=== PATIENT | female | born 1945 | race Caucasian/White ===

== ENCOUNTER 2017-03-03 11:37 | Day surgery (SDC) | payer MEDICARE, MEDICAID ==
[~2017-03-03] VITALS: Ht 165.1 cm; Wt 101.6 kg
[~2017-03-03 11:37] MED LIST: ACET-171 PO; ANST1T PO; ATEN25TA PO; ATOR20TA PO; CHOL200025 PO; CeFAZolin Inj 2 GM in IV Premix 1 EACH IV SCH; ECON15CR10 TOP; LISI10TA PO; Lactated Ringer's 1,000 ML IV ONE; OMEP20TA24 PO; PRIM50TA PO; RANI300T4 PO; TURMERIC ROOT; [UNRECOGNIZED DRUG - CODE] MC
[2017-03-03 12:15] VITALS: BP 159/51; PULSE 53; RESP 16; O2SAT 95
[2017-03-03 13:04] LABS: BASOPHILS % (AUTO) 0.4 % (0-3); EOSINOPHILS % (AUTO) 1.3 % (0-5); MONOCYTES % (AUTO) 8.7 % (4-12); Mean Corpuscular Hemoglobin 30.7 pg (27.0-35.0); Mean Corpuscular Volume 91.7 fL (81-100); NEUTROPHILS % (AUTO) 50.9 % (40-74); Platelet Count 232 bil/L (150-400)
[2017-03-03] MEDS ORDERED: Lactated Ringer's 1,000 ML IV ONE (16:55)
[2017-03-03 16:59] VITALS: BP 148/53; PULSE 59; RESP 16; O2SAT 95
== END 2017-03-03 23:59 | disposition home or self-care (01) ==
LOC: SAS 11:37
PROVIDERS: ATTEND Student in an Organized Health Care Education/Training Program
DX: K43.2 Incisional hernia without obstruction or gangrene (principal); Z53.8 Procedure and treatment not carried out for other reasons
CPT/HCPCS: 36415; 80048; 85025; 93005; J7120

== ENCOUNTER → 2017-03-10 | Day surgery (SDC) | payer MEDICARE, MEDICAID ==
[~2017-03-10] VITALS: Ht 165.1 cm; Wt 102.0 kg
[2017-03-10] VITALS (14 sets, daily range): BP systolic 136–185; BP diastolic 58–82; PULSE 53–70; RESP 14–20; O2SAT 95–100
[~2017-03-10] MED LIST changes: +0.9% Sodium Chloride 1,000 ML IV SCH; -CeFAZolin Inj 2 GM in IV Premix 1 EACH IV SCH; +Heparin 1,000 Units/500 mL NS Premix IV ONE; +Heparin 10,000 Unit/1,000 mL NS Premix IV ONE; -Lactated Ringer's 1,000 ML IV ONE; +Nitroglycerin 50,000 mcg/250 mL D5W Premix IV ONE; +Sodium Chloride LOK Flush 10 mL Syringe IVFLUSH PRN; +fentaNYL-PF 50 mCg/mL 2 mL Inj ONE
[2017-03-10 07:41] LABS: BASOPHILS % (AUTO) 0.3 % (0-3); EOSINOPHILS % (AUTO) 1.4 % (0-5); MONOCYTES % (AUTO) 9.8 % (4-12); Mean Corpuscular Hemoglobin 30.7 pg (27.0-35.0); Mean Corpuscular Volume 91.4 fL (81-100); NEUTROPHILS % (AUTO) 54.9 % (40-74); Platelet Count 230 bil/L (150-400)
[2017-03-10 07:54] LABS: INR 0.95 ratio
--- NOTE | 2017-03-10 08:32 | NUR ---
Admitted today for a heart cath - patient is being cleared for surgery to check a Right breast lesion and repair a abdominal hernia. Here today with her son.
--- NOTE | 2017-03-10 10:08 | NUR ---
1000 post Cardiac Cath: Patient is alert and denies pain post procedure. Right groin is soft and dry.
--- NOTE | 2017-03-10 10:58 | CS94 ---
[address] [address] DIAGNOSTIC CARDIAC CATHETERIZATION PATIENT: BRUNO BARRAZA : 1945 MR#: [id number] ADMIT: 03/10/2017 JOB ID: [id number] SERVICE DATE: 03/10/2017 PATIENT PROFILE: The patient is a 72 years old lady with history of obesity, hypertension, and hypercholesterolemia. She was scheduled to undergo hernia surgery. The surgery was canceled by anesthesiologist due to chest discomfort and abnormal EKG. Her recent treadmill stress test was abnormal. However she was able to exercise for only 3 minutes and 13 seconds with an ENRIQUE of +25%. Lexiscan MIBI was normal. PROCEDURE: 1. Retrograde left heart catheterization. 2. Selective coronary angiography. 3. Left ventricular angiogram. 4. Vascular closure device Perclose. COMPLICATIONS: None. METHOD: Retrograde left heart catheterization was performed from the right groin under 1% lidocaine local anesthesia using a 6-Afghan sheath. Selective coronary angiogram was performed in multiple projections, including cranial and caudal angulations with hand injected contrast via JL4 and 3DRC catheters. A 6-Afghan angulated pigtail catheter was advanced to the left ventricle and left ventricular angiogram was performed in the 30 degree ROCHA view by injecting contrast at the rate of 10 cc/second for 3 seconds. This catheter was withdrawn. Right femoral angiogram was performed. Following sheath removal, hemostasis was achieved by using a Perclose device. The patient tolerated the procedure well. She was transferred to [facility] in good condition. TOTAL CONTRAST USED: 60 cc. FLUOROSCOPY TIME: 0.9 minutes. RESULTS: 1. Selective coronary angiogram: a. Left main coronary artery is normal. b. The left anterior descending artery is transapical and normal. c. The codominant circumflex is normal. d. The codominant right coronary artery is normal. 2. Left ventricular angiogram demonstrates normal left ventricular systolic function (visually estimated ejection fraction 65%). There is no wall motion abnormality. There is no mitral regurgitation. 3. There is no gradient across the aortic valve on catheter withdrawal. 4. Aortic pressure is 179/83 mmHg. Left ventricular pressure is 179/10 mmHg. 5. Left ventricular end-diastolic is 20 mmHg. CONCLUSION: 1. Normal coronary arteries. 2. Left ventricular ejection fraction of 65%. 3. LVEDP is 20 mmHg. PLAN: The dose of lisinopril will be increased from 10 mg to 20 mg once daily for improved blood pressure control. She may undergo hernia surgery with low risk of perioperative cardiac event. MTDD
--- NOTE | 2017-03-10 13:50 | NUR ---
Trevino catheter removed without difficulty. 350cc out.
--- NOTE | 2017-03-10 14:30 | NUR ---
Recovery completed in [facility] post diagnostic heart cath. Right femoral access site is soft and non-tender at discharge from [facility]. Home care instructions reviewed with patient and patient's son Giovani. Pt will follow up with her PCP. Addendum: 03/10/17 at 1459 by LUZ MARIA MILLER RN Patient was able to void prior to D/C from [facility] and jordan catheter removal
== END | disposition home or self-care (01) ==
LOC: SOUO 01:03
PROVIDERS: ATTEND Internal Medicine Interventional Cardiology
DX: R07.89 Other chest pain (principal); R94.39 Abnormal result of other cardiovascular function study; E66.01 Morbid (severe) obesity due to excess calories; Z68.35 Body mass index [BMI] 35.0-35.9, adult; I10 Essential (primary) hypertension; E78.00 Pure hypercholesterolemia, unspecified; K46.9 Unspecified abdominal hernia without obstruction or gangrene; E78.2 Mixed hyperlipidemia; G47.33 Obstructive sleep apnea (adult) (pediatric); Z85.3 Personal history of malignant neoplasm of breast; G47.00 Insomnia, unspecified; G25.81 Restless legs syndrome; Z90.13 Acquired absence of bilateral breasts and nipples; Z79.82 Long term (current) use of aspirin; Z87.891 Personal history of nicotine dependence
CPT/HCPCS: 36415; 80048; 85025; 85610; 93005; 93458; 99152; 99153; C1760; C1769; J1644; J2250; J3010; Q9967

== ENCOUNTER 2017-03-24 05:34 | Day surgery (SDC) | payer MEDICARE, MEDICAID ==
--- NOTE | 2017-03-14 16:01 | PCM.ANEPRE ---
Anesthesia Pre-Op Review Reason for Review: prior hx surg cx 03/03 intraop cardiac concerns- new cardiac review done Additional Comments Chart reviewed in preparation for lap ventral herniorrhaphy + ax mass excision. Pt Hx arrhythmia, CP, abn EKG necessitating Cx of scheduled procedure for cardiac consult: Comorbidities include obesity, HTN/HLD, JANET, GERD, Abn EST. [facility] 03/10/17: EF 65%, Normal coronaries, No MV/AV lesions: Clear for surgery @ low risk. Norman Christine DO Mar 14, 2017 16:01
[2017-03-24] VITALS (15 sets, daily range): BP systolic 123–173; BP diastolic 56–99; PULSE 54–76; RESP 13–18; O2SAT 91–99
[~2017-03-24] VITALS: Ht 165.1 cm; Wt 102.5 kg
[~2017-03-24 05:34] MED LIST changes: -0.9% Sodium Chloride 1,000 ML IV SCH; -ACET-171 PO; -ECON15CR10 TOP; -Heparin 1,000 Units/500 mL NS Premix IV ONE; -Heparin 10,000 Unit/1,000 mL NS Premix IV ONE; +Lactated Ringer's 1,000 ML IV ONE; -Nitroglycerin 50,000 mcg/250 mL D5W Premix IV ONE; -Sodium Chloride LOK Flush 10 mL Syringe IVFLUSH PRN; -fentaNYL-PF 50 mCg/mL 2 mL Inj ONE
[2017-03-24] MEDS ORDERED: Atropine 0.4 mg/mL Inj ONE (05:35)
[2017-03-24] MEDS ORDERED: EPHEDrine/NS 5 mg/mL 5 mL Syringe ONE (05:35)
[2017-03-24] MEDS ORDERED: Dexamethasone 4 mg/mL Inj ONE (05:35)
[2017-03-24] MEDS ORDERED: Propofol 10,000 mCg/mL 20 mL Inj ONE (05:35)
[2017-03-24] MEDS ORDERED: Ondansetron 2 mg/mL 2 mL Inj ONE (05:35)
[2017-03-24] MEDS ORDERED: Rocuronium 10 mg/mL 5 mL Inj ONE (05:35)
[2017-03-24] MEDS ORDERED: fentaNYL-PF 50 mCg/mL 2 mL Inj ONE (05:35)
[2017-03-24] MEDS ORDERED: Ketamine 10 mg/mL 20 mL Inj ONE (05:35)
[2017-03-24] MEDS ORDERED: CeFAZolin 2 Gm/50 mL D5W Duplex Bag IV ONE (06:00)
[2017-03-24] MEDS ORDERED: tylenol PO ×2 (06:26)
[2017-03-24] MEDS ORDERED: Bupivacaine-MPF 0.5% W/EPI 30 mL Inj INFILTRATE ONE (08:00)
[2017-03-24] MEDS ORDERED: Bupivacaine 0.5%/EPI 50 mL Inj INFILTRATE ONE (08:00)
[2017-03-24] MEDS ORDERED: Albuterol-Ipratropium 3 mL Inhalation Solution NEB PRN (08:10)
[2017-03-24] MEDS ORDERED: hydrALAZINE 20 mg/mL Inj IVPUSH PRN (08:10)
[2017-03-24] MEDS ORDERED: MetoCLOpramide 5 mg/mL 2 mL Inj IVPUSH PRN ×2 (08:10→09:35)
[2017-03-24] MEDS ORDERED: Phenylephrine 10,000 mCg/mL Inj IVPUSH PRN (08:10)
[2017-03-24] MEDS ORDERED: EPHEDrine Sulfate 50 mg/mL Inj IVPUSH PRN (08:10)
[2017-03-24] MEDS ORDERED: Lactated Ringer's 1,000 ML IV SCH (08:10)
[2017-03-24] MEDS ORDERED: Atropine 0.4 mg/mL Inj IVPUSH PRN (08:10)
[2017-03-24] MEDS ORDERED: Labetalol 5 mg/mL 4 mL Inj IV PRN (08:10)
[2017-03-24] MEDS ORDERED: Dexamethasone 4 mg/mL Inj IVPUSH PRN (08:10)
[2017-03-24] MEDS ORDERED: Lactated Ringer's 500 ML IV PRN (08:10)
[2017-03-24] MEDS ORDERED: Ondansetron 2 mg/mL 2 mL Inj IVPUSH PRN ×2 (08:10→09:35)
--- NOTE | 2017-03-24 08:19 | PCM.HPANE ---
Patient Data Date of Service: Mar 24, 2017 Surgeon Admitting Provider: Attending Provider:Micheal Perera MD Primary Care Physician:Vince Zendejas MD Other Provider:Bonny Pierce Anesthesia Reason for Visit Reccurent Ventral Hernia, Right Axillary Mass RECCURENT VENTRAL HERNIA, RIGHT AXILLARY MASS Ht/WT & BMI Height (Feet): 5 Height (Inches): 5.00 Weight (Kilograms): 102.5 Body Mass Index 37.00 Allergies Coded Allergies: etodolac (Verified Allergy, Severe, Hives, 03/10/17) niacin (Verified Allergy, Unknown, UNKNOWN, 03/10/17) Past Anesthesia History Anesthesia History: Denies:: Abnormal Airway, Anesthesia Reactions, Difficult Intubation, Fam Anesthesia Reaction, Fam Malignant Hypertherm, Malignant Hyperthermia Diabetes History Hx Diabetes?: No MRSA MRSA: No Medications Hypertension Medication: Yes Home Meds Incl Beta Liz: Yes Date Beta Liz Taken: Mar 23, 2017 Time Beta Liz Taken: 2100 Reported Medications [tylenol] No Conflict [id number] Mg PO BID taken pm and hs 03/24/17 [tylenol] No Conflict Check1,000 Mg PO am 03/24/17 Cholecalciferol (Vitamin D3) (Vitamin D3)2,000 Unit Tablet2,000 Unit PO DAILY 02/24/17 [turmeric root] No Conflict CheckUnknown Dose DAILY 02/24/17 Ranitidine 300 Mg [id number] Mg PO BID Ref 0 02/24/17 Primidone 50 Mg Slyteh23 Mg PO HS 30 Days 02/24/17 Omeprazole Magnesium (Prilosec Otc)20 Mg Tablet.dr20 Mg PO DAILY #1 PKG Ref 0 02/24/17 Lisinopril 10 Mg Qmvzcx01 Mg PO DAILY 30 Days Ref 0 02/24/17 Atorvastatin (Lipitor)20 Mg Qdrmap11 Mg PO DAILY Ref 0 02/24/17 Iodine 30 Ml Liquid3 Gtts MC DAILYWD 02/24/17 Atenolol 25 Mg Jdevbh51 Mg PO DAILY #30 TABLET Ref 0 02/24/17 Anastrozole (Arimidex)1 Mg Tablet1 Mg PO DAILY #30 TABLET 02/24/17 History History of ENT Problems?: No HEENT History: Positive for:: Cataracts Sinus Problem Denies:: Abnormal Airway Difficult Intubation Dysphagia Hearing Problem Denture Type: None Teeth Condition: Within Normal Limits Hx of Heart Problems?: Yes Cardiovascular History: Positive for:: Cardiac Surgery (cardiac cath- dx only 03/10/17) Chest Pain Edema Heart Murmur Hypertension Irregular Heartbeat Thrombophlebitis (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) Denies:: AICD Atrial Fibrillation Pacemaker Rheumatic Fever Valvular Heart Disease Hx of Respiratory Problem?: Yes Respiratory History: Positive for:: Dyspnea Denies:: Asthma COPD Chest Surgery Cough Hemoptysis Oxygen Administration Pneumonia Tuberculosis Use of C-PAP Machine (CPAP recommended- not tolerated ) Other History/Comment JANET diagnosed;Pt non-compliant with CPAP recommendations Hx Neurologic Problems?: Yes Neurological History: Positive for:: Dizziness (occasionally) Denies:: CVA Dementia Headaches Multiple Sclerosis Parkinson's Disease (benign essential tremor) Seizures Other History/Comments Essential tremor Hx of GI Problems?: Yes Gastrointestinal History: Positive for:: Gastroesphageal Reflux (HH) Other GI Pertinent History: ventral hernia current admission problem Other History/Comment Central obesity Hx of Problems?: No Genitourinary History: Denies:: HX of Hemodialysis Kidney Stones Urinary Tract Infection HX of Peritoneal Dialysis: No Female Hx: Positive for:: Problems with Breasts? (hx of lilliana mastectomy - current right axillary mass) Denies:: Currently (hysterectomy) Endometriosis Pelvic Inflammatory Skin History: Denies:: History Skin Disorders? Pressure Ulcers Hx Musculoskeletal Problems?: No Musculoskeletal History: Positive for:: Degenerative Joint Joint Replacement (both knees) Denies:: Back Injury Musculoskeletal Trauma Systemic Lupus Hx of Psycho/Social Problems?: Yes Psycho Social History: Positive for:: Anxiety Denies:: Bipolar Disorder Hx Depression Suicide Attempt Hx Surgeries?: Yes (bilt mastectomy) Hx Any Other Health Problems?: Yes Other History: Positive for:: Cancer (Breast) Hospitalization Denies:: Endocrine Disease Thyroid Disease History Blood Transfusions: Denies:: Blood Transfuse Reaction Blood Transfusions Hx Diabetes: No Hx Alcohol Use: NoHx Substance Use: No Smoking Status: Former Smoker Have You Smoked inLast 12 mo: No Stop/Bang S-Snoring: Do You Snore Loudly: No T-Tired: feel tired, fatigued: No O-Obsered: Observed not breath: No P-Blood Pressure: treated: Yes B- Body Mass Index > 35 kg/m2: Yes A- Age over 50: Yes N- Neck Large Circumference: No G- Gender Male: No JANET Total Score: 3 JANET Risk Assessment: High Risk, =/>3 Yes Risk Assessment Category Category 1A: Patient has history of documented sleep apnea, and HAS NOT received any narcotic, sedative or anesthesia administration during this stay. Category 1B: Patient has history of documented sleep apnea, and HAS received any narcotic , sedative or anesthesia administration during this stay Category 2: Patient has SUSPECTED Obstructive Sleep Apnea, and HAS received any narcotic , sedative or anesthesia administration during this stay. Category 3: Patient has SUSPECTED Obstructive Sleep Apnea and HAS NOT received narcotic, sedative or anesthesia administration during this stay. Category 4: Outpatient in Procedural Areas with known sleep apnea or who screen positive for High Risk via the STOP/BANG questionnaire. Exam Exam Vital Signs Vital Signs Date Time Temp Pulse Resp B/P Pulse Ox O2 Delivery O2 Flow Rate FiO2 03/24/17 06:09 CPAP/BIPAP 03/24/17 06:09 36.4 54 18 173/58 96 Room Air General Appearance: Alert, Oriented X3, Cooperative, No Acute Distress HEENT/AIRWAY: MP 3 (Thick neck, relatively large tongue, Known JANET Dx), Mouth Opening (Limited interincisor gap) Lungs: Clear to Auscultation, Normal Air Movement Heart: Exam Unremarkable, Normal S1, Normal S2, No Murmurs/Rubs/Gallops Meds/Labs/Diagnostics Admission Meds Current Medications Lactated Ringer's (Lr) 1,000 ml @ 120 mls/hr Q8H20M ONCE IV Last administered on 03/24/17 05:38; Start 03/24/17 at 05:00; Stop 03/24/17 at 13:19 Cefazolin Sodium (Ancef Inj) 2 gm STK-MED ONCE IVPUSH Last administered on 07:38; Start 03/24/17 at 07:38; Stop 03/24/17 at 08:10; Status DC Bupivacaine HCl/ Epinephrine Bitart (Sensorcaine-MPF 0.5% W/EPI Inj) 30 ml STK- MED ONCE INFILTRATE Last administered on 03/24/17 08:00; Start 03/24/17 at 08:00 ; Stop 03/24/17 at 08:10; Status DC Plan Impression Patient chart reviewed, patient interviewed and anesthestic plan with risks, benefits, and alternatives discussed, and informed consent obtained. NPO per Anesth. Guidelines: Yes ASA Physical Status: ASA3 Severe Disease Anesthetic Plan: GA Bene/Risks/Altern/Consents: Yes HP Complete Prior to Induction: Yes Other JANET diagnosed;Pt non-compliant with CPAP recommendations Hx arrythmia necessitating case cancelation previously with subsequent cardiac w /u found non-worrisome. Norman Carrillo DO Mar 24, 2017 08:18
[2017-03-24] MEDS ORDERED: Lactated Ringer's 1,000 ML IV ONE (08:30)
--- NOTE | 2017-03-24 09:26 | PCM.SURGOP ---
Surgical Operative Report Date of Service: Mar 24, 2017 Pre Operative Diagnosis Right axillary mass, umbilical hernia Post Operative Diagnosis Same Procedure: Laparoscopic umbilical hernia repair with mesh, excision of right axillary mass Surgeon and Product Safety Engineer: Surgeon: Micheal Perera MD Assistants: Rj Faust MD PGY-3 Indication for Procedure 72-year-old woman with a history of bilateral breast cancer with multiple chest wall recurrences. Her last chest wall recurrence was excised in 2006. In 2011 , she underwent a laparoscopic liver resection for a suspicious lesion, which ultimately was benign. She then developed an umbilical hernia after that operation, which was symptomatic. She developed a slightly tender right axillary mass which measured 0.5 cm, fairly low suspicion, but given her personal history, she favored excision. After discussion of risks and benefits , she agreed to proceed with laparoscopic umbilical hernia repair with mesh and excision of right axillary mass. Findings: The umbilical defect was multi-fenestrated, encompassing a total area of 4 cm craniocaudal. The repair was performed using the Bard Ventralight 15.2 cm mesh. The right axillary lesion was minimally concerning. Procedure Details After smooth induction of general endotracheal anesthesia, she was placed in the supine position with both arms out. Hernia repair was performed first, so the abdomen was prepped and draped in wide sterile fashion. A procedural pause was performed according to the SCOAP checklist, and all were found to be in agreement. Pneumoperitoneum was established with a Veress needle in the left subcostal region. Once this was accomplished, the peritoneal cavity was entered in the left upper quadrant with a 5 mm optical viewing trocar. The Veress needle had caused no injury, and it was removed. Additional ports were placed under visualization. A 12 mm port was placed in the left midabdomen, and a 5 mm port was placed in the left lower quadrant. There were adhesions to the umbilicus, but no other significant adhesions in the abdomen. There were no other peritoneal masses. There were no liver masses. Using laparoscopic scissors with cautery, the hernia contents were dissected off the defect. The defect was multi-fenestrated, containing approximately 3 small defects, all involved with omental fat. The defect size was measured at 4 cm craniocaudal. A repair was then performed using the Bard Ventralight mesh with the ECHO positioning system, the 15.2 cm round mesh was selected. This was introduced through the left mid abdominal port. The mesh was positioned by making a small stab incision over the middle of the hernia defects through the umbilicus. The positioner was brought out through that incision, and the balloon was inflated. The mesh was then tacked circumferentially using the Optifix device. The positioner was removed. A total of 4 trans-fascial sutures were then placed with 0 Prolene suture area this was done using an 18-gauge spinal needle through the mesh, and a suture passer lateral to the mesh. Once the sutures were tied down, then the remainder of the Optifix tacks were used to continue mesh fixation. The mesh was in excellent position. The fascia of the 12 mm port site was then closed using an inlet closure device with an 0 Vicryl suture. The 5 mm ports were removed and pneumoperitoneum was released. The skin incisions were closed with 4-0 Monocryl subcutaneous cuticular sutures. Steri-Strips and sterile dressings were applied. The right axilla was then reprepped and draped separately. The axillary portion of her prior mastectomy incision was reopened sharply. Skin flaps were raised superiorly and inferiorly. There was a small amount of dense tissue in the subcutaneous space at the order of the pectoralis muscle. All of the subcutaneous tissue and any residual axillary tissue in the area was excised down to the serratus muscle, which was not very much tissue because of her prior complete node dissection. The excised tissue measured approximately 2 x 2 centimeters. It had some slightly firm areas, but no obvious malignancy. It was sent for permanent pathology, labeled as right axillary mass. Hemostasis was adequate. The incision was closed with interrupted deep 3-0 Vicryl suture, and a running 4-0 Monocryl subcuticular stitch. Steri-Strips and sterile dressings were applied. At the end of the case all needle and sponge counts were correct 2. The patient was awakened from anesthesia without difficulty, and taken to the recovery room in satisfactory condition, having tolerated the procedures well. Complications There were no periprocedural complications identified. Surgical Specimen Removed: Yes Specimen sent to Pathology: Yes Surgical Specimen description: Right axillary mass. Anesthetic Plan: GA Grafts, Implants: Implants-See Implant Record Output, Estimated Blood Loss: 10 Blood Administration during brock: No Drains: None Catheters: None copies to: Vince Zendejas MD, Joshua D MD Mar 24, 2017 09:26
[2017-03-24] MEDS: Dextrose 5% Lactated Ringer's 1,000 ML IV SCH ×2 (09:35→17:35)
[2017-03-24] MEDS: fentaNYL-PF 50 mCg/mL 2 mL Inj IVPUSH PRN ×2 (09:52→09:58)
[2017-03-24] MEDS: HYDROmorphone 1 mg/mL Inj IVPUSH PRN ×3 (10:08→10:29)
--- NOTE | 2017-03-24 11:08 | PCM.ANEP1 ---
Post Anesthesia PACU Phase 1 Assessment Date of Service: Mar 24, 2017 Vital Signs Vital Signs Date Time Temp Pulse Resp B/P Pulse Ox O2 Delivery O2 Flow Rate FiO2 03/24/17 10:49 36.4 63 18 146/74 99 Nasal Cannula 2.00 03/24/17 10:39 36.9 61 13 148/56 97 Nasal Cannula 2 03/24/17 10:30 64 13 142/68 95 Nasal Cannula 2 03/24/17 10:15 67 14 124/99 95 Nasal Cannula 2 03/24/17 10:05 95 Nasal Cannula 2 03/24/17 10:00 36.6 66 15 149/73 99 Simple Mask 10 03/24/17 09:45 64 18 123/88 98 Simple Mask 10 03/24/17 09:40 65 17 163/62 98 Simple Mask 10 03/24/17 09:35 73 14 155/73 98 Simple Mask 10 03/24/17 09:32 36.3 65 15 141/66 91 Simple Mask 10 03/24/17 06:09 CPAP/BIPAP 03/24/17 06:09 36.4 54 18 173/58 96 Room Air Anesthetic Administered: GA Level of Alertness: Awake, talking ZELAYA's with Equal Strength: Yes Pain: Yes (3 out of 10) Pain Scale Score: 3 Nausea or Vomiting: No CV Function & Hydration Stable: Yes Airway Device: Oralpharangeal Airway Oxygen Delivery: Room Air, Simple Mask (6L/m) Lungs: Clear to Auscultation, Normal Air Movement PACU Phase 2 Assessment Complications: No Patient Instructions Provided: N/A Norman Carrillo DO Mar 24, 2017 11:08
--- NOTE | 2017-03-24 11:50 | NUR ---
Arrival to 1006 Pt transferred from PACU at 1050. Alert and oriented x4, experienced with prior surgeries and understands needs for CPOx, SCD's, blood sugar checks and is agreeable to HOB >30 degrees. Pt immediately requesting getting to BR to void; slow with movements d/t increased pain in RUQ of abdomen but tolerated well. Pain well controlled at rest (3/10). Tolerating clears with no nausea at this time. Axillary dressing is CDI. Midline incisions surround umbilical site at 12, 3, 6, and 9 o'clock covered with steri-strips; sites at 12 and 6 o'clock bleeding with ambulation, cleaned and reinforced with bandaids. Lateral abdominal sites CDI. Son at bedside.
[2017-03-24] MEDS ORDERED: Acetaminophen IV 1,000 MG in IV Premix 1 EACH IV PRN (14:10)
[2017-03-24] MEDS ORDERED: Polyethylene Glycol (PEG) 17 Gm Powder PO PRN (14:10)
[2017-03-25] MEDS: Dextrose 5% Lactated Ringer's 1,000 ML IV SCH ×2 (00:28→09:35)
--- NOTE | 2017-03-25 01:56 | NUR ---
Pain/Activity Pain noticeably increases upon standing and walking to BR. Steady on feet, denies lightheadedness/dizziness. Rates pain a 5-6/10 to abdomen with movement. Receiving Oxycodone 10mg PO [id number] PRN with somewhat effective results. States pain is still there when she moves, but when she lays still its "tolerable". Noted to be resting with eyes closed upon hourly roundings most of shift.
[2017-03-25 04:30] VITALS: BP 186/77; PULSE 74; RESP 17; O2SAT 94
[2017-03-25] MEDS ORDERED: Pantoprazole 20 mg ER24 Tablet PO SCH (06:30)
--- NOTE | 2017-03-25 06:54 | PCM.DISURG ---
Surgical Discharge Instruction Date of Service Mar 25, 2017 Dates of Hospitalization Date of Hospital Admission Providers Admitting Physician: Primary Care Physician: Vince Zendejas MD Attending Physician: Micheal Perera MD Discharge Diagnosis Discharge Diagnosis umbilical hernia, right axillary mass Post Operative diagnosis Same Diet Discharge Diet: No restrictions Activity Discharge Activity-General: No lifting >15 pounds for 2 weeks Dressing and Incisional Care Dressing Care: Allow Steri Stripes to fall off (or remove them in 10 days if they have not fallen off), Remove outer dressing after 24 hrs Hygiene: May shower Follow Up Plan Follow Up Plan in the [facility] postop clinic in 2-3 weeks Call your provider for: Fever (over 101.5F), Vomiting, Discharge @ incision, pus discharge Micheal Perera MD Mar 25, 2017 06:54
[2017-03-25] MEDS ORDERED: POLY17PO6 PO (06:55)
[2017-03-25] MEDS ORDERED: OXYC5TAB72 PO (06:55)
[2017-03-25 08:48] VITALS: BP 157/53; PULSE 93; RESP 17; O2SAT 95
--- NOTE | 2017-03-25 09:10 | PROG NOTE ---
[address] [address] PROGRESS NOTE PATIENT: BRUNO BARRAZA : 1945 MR#: [id number] ADMIT: 03/24/2017 JOB ID: [id number] DATE: 03/25/2017 SUBJECTIVE: The patient is seen in followup. She had a reasonable night overnight with some pain, but her pain was manageable. She has no nausea. She has minimal pain in the right axilla. She is tolerating a diet. OBJECTIVE: Temperature 36.6, pulse 93, blood pressure 157/53, saturation 95% on room air. General, she is resting in bed in no acute distress. Chest is clear. Heart regular rate and rhythm, no murmurs. Extremities the right axillary incision is clean with no fluctuance, no erythema. Abdomen is soft, obese, but nontender, nondistended. Her incisions are clean with no erythema. ASSESSMENT AND PLAN: A 72-year-old woman, postoperative day one, status post laparoscopic umbilical hernia repair with mesh and excision of right axillary mass. She is doing well clinically. She will be discharged to home today. Lifting restrictions are no lifting greater than 15 pounds for 2 weeks and minimizing abdominal straining. She will follow up in the [facility] in 2-3 weeks for a wound check. I will call her with pathology results from her axilla when they are available.
--- NOTE | 2017-03-25 11:52 | NUR ---
Discharge Patient DC to home with son as transportation. All DC education provided to patient and family including follow up appts, medications to start taking and home medications to continue, infection control and activity instructions. Patients IV access removed intact with no signs or symptoms of infection. Patient verbalizes understanding of all instructions.
--- NOTE | 2017-03-27 12:05 | PATH ---
SURGICAL PATHOLOGY Attending Physician:Felicitas Bonner CASE STATUS: Signed Out PATIENT NAME: BRUNO BARRAZA PID: [id number] : 1945 DATE COLLECTED:03/24/2017 21:39 SPECIMEN: Soft Tissue, Lipoma CLINICAL HISTORY: VENTRAL HERNIA, RIGHT AXILLARY MASS 1). RIGHT AXILLARY MASS FINAL DIAGNOSIS: 1.RIGHT AXILLARY MASS, EXCISION: FIBROADIPOSE TISSUE WITH ATTACHED FRAGMENTS OF SKELETAL MUSCLE. NEGATIVE FOR MALIGNANCY. ICD10 R22.9 GROSS DESCRIPTION: The specimen is received in formalin, labeled with the patient's name, sublabeled as Rt axillary mass, and consists of a sherman-yellow rubbery fatty mass (2.0 x 1.7 x 0.5 cm). The cut surface is homogenous and unremarkable. Ink code: black-resection margin. Section code: (A) fatty mass, bisected. Specimen entirely submitted. 03/25/17 JM MICRO DESCRIPTION: See diagnosis. ICD-9 CODES: CPT CODES: 91730 Electronically Signed Out Ben Baptiste MD [facility] [address], [place] [address] Technical component performed at [facility], [facility] [address], [place], [address]
== END 2017-03-25 11:54 | disposition home or self-care (01) ==
LOC: SAS 05:34 → OSC 10:23 → SAS 03-25 11:54
PROVIDERS: ATTEND Student in an Organized Health Care Education/Training Program
DX: K42.9 Umbilical hernia without obstruction or gangrene (principal); R22.31 Localized swelling, mass and lump, right upper limb; I10 Essential (primary) hypertension; I35.8 Other nonrheumatic aortic valve disorders; E78.5 Hyperlipidemia, unspecified; G47.33 Obstructive sleep apnea (adult) (pediatric); K21.9 Gastro-esophageal reflux disease without esophagitis; G25.81 Restless legs syndrome; E66.3 Overweight; F41.9 Anxiety disorder, unspecified; Z85.3 Personal history of malignant neoplasm of breast; Z87.891 Personal history of nicotine dependence; Z68.37 Body mass index [BMI] 37.0-37.9, adult; Z90.710 Acquired absence of both cervix and uterus; Z86.718 Personal history of other venous thrombosis and embolism; Z96.653 Presence of artificial knee joint, bilateral
CPT/HCPCS: 11402; 49652; 94640; C1781; J0131; J0461; J0690; J1100; J1170; J2250; J2405; J3010; J7120; S0170